=== PATIENT | female | born 1990 | race Caucasian/White ===

== ENCOUNTER 2017-03-07 08:40 | Emergency (ER) | payer BC ==
[~2017-03-07] VITALS: Ht 165.1 cm; Wt 52.2 kg
[~2017-03-07 08:40] MED LIST: ANAPROX DS550 MG PO; AUGMENTIN 500500 MG PO; DULCOLAX10 MG RC; IBU-6600 MG PO; LEVOFLOXACIN500 MG PO; MOTRIN 800 MG E4 TAB PO; PRENATAL1 TA1 PO; TRAMADOL HCL50 MG PO; VICODIN 5/500 505 MG PO; ZANTAC150 MG PO
[2017-03-07] MEDS ORDERED: ADDERALL XR15 MG PO (08:46)
[2017-03-07 09:20] LABS: BASO # 0.1 10*3/uL (0.0-0.1); BASO % 0.4 % (0.0-1.0); EOS # 0.1 10*3/uL (0.0-0.4); EOS % 0.6 % (1.0-4.0); HEMATOCRIT 38.4 % (37.0-47.0); HEMOGLOBIN 13.4 g/dl (12.0-16.0); IG # 0.1 10*3/uL (0.0-0.1); LYMPH # 2.4 10*3/uL (1.3-4.4); LYMPH % 19.4 % (27.0-41.0); MEAN CELL VOLUME 89.3 fl (81.0-99.0); MEAN CORPUSCULAR HGB 31.2 pg (27.0-31.0); MEAN CORPUSCULAR HGB CONC 34.9 g/dl (33.0-37.0); MEAN PLATELET VOLUME 9.8 fl (9.6-12.3); MONO # 0.6 10*3/uL (0.1-1.0); NEUT # 9.1 10*3/uL (2.3-7.9); NEUT % 73.9 % (47.0-73.0); PLATELET COUNT AUTOMATED 355 10*3/uL (130-400); RED CELL DISTRI WIDTH 12.3 % (0-14.5); WHITE BLOOD COUNT 12.3 10*3/uL (4.8-10.8)
[2017-03-07 09:36] LABS: ALBUMIN 3.9 gm/dl (3.1-4.5); ALKALINE PHOSPHATASE 61 U/L (45-117); BILIRUBIN, TOTAL 0.7 mg/dl (0.2-1.0); BUN 15 mg/dl (7-24); CARBON DIOXIDE 16 mmol/L (21-32); CHLORIDE 106 mmol/L (98-107); EST GLOM FILT AFRICAN AMERICAN 57 ml/min; GLUCOSE 155 mg/dL (65-99); POTASSIUM 3.1 mmol/L (3.5-5.1); SGOT/AST 14 IU/L (3-35); SGPT/ALT 21 U/L (12-78); SODIUM 136 mmol/L (136-145); TOTAL PROTEIN 7.7 gm/dL (6.4-8.2)
[2017-03-07 09:38] LABS: C-REACTIVE PROTEIN < 0.29 MG/DL (0-0.3)
[2017-03-07 11:38] VITALS: BP 122/79
[2017-03-07 11:42] LABS: BILIRUBIN 1+ (NEGATIVE); BLOOD 3+ (NEGATIVE); CLARITY CLOUDY (CLEAR); COLOR YELLOW (YELLOW); GLUCOSE NEGATIVE (NEGATIVE); KETONE 3+ (NEGATIVE); LEUKO ESTERASE NEGATIVE (NEGATIVE); NITRITE NEGATIVE (NEGATIVE); PROTEIN 2+ (NEGATIVE); SPECIFIC GRAVITY 1.025 (1.005-1.030)
[2017-03-07 11:55] LABS: BACTERIA TRACE; MUCOUS 1+; RBC 31-40 rbc/hpf (0-2)
[2017-03-07 11:56] LABS: URINE REFLEX COMMENT YES (NO)
[2017-03-07] MEDS ORDERED: HYDROCODONE BIT1 T11 PO (13:53)
[2017-03-07] MEDS ORDERED: Motrin,Rufen800 MG PO (13:53)
[2017-03-07] MEDS ORDERED: BACTRIM DS 8001 TA1 PO (13:53)
[2017-03-07] MEDS ORDERED: ZOFRAN ODT4 MG SL (13:53)
[2017-03-07] MEDS ORDERED: K-TAB20 MEQ PO (14:04)
== END 2017-03-07 14:00 | disposition home or self-care (01) ==
LOC: ED 08:40
PROVIDERS: Physician Assistant
DX: N13.2 Hydronephrosis with renal and ureteral calculous obstruction (principal); N39.0 Urinary tract infection, site not specified; R31.9 Hematuria, unspecified; E87.6 Hypokalemia; Z88.0 Allergy status to penicillin; Z79.899 Other long term (current) drug therapy

== ENCOUNTER → 2020-10-29 | Outpatient (CLI) | payer BC ==
[~2020-10-29] MED LIST changes: +ADDERALL XR15 MG PO; +BACTRIM DS 8001 TA1 PO; +HYDROCODONE BIT1 T11 PO; +K-TAB20 MEQ PO; +Motrin,Rufen800 MG PO; +PERCOCET 5-3251 EACH PO; +ZOFRAN ODT4 MG SL
== END | disposition home or self-care (01) ==
LOC: COVID19 02:22 → LAB 02:22
PROVIDERS: ATTEND Obstetrics & Gynecology
DX: Z11.52 Encounter for screening for COVID-19 (principal)

== ENCOUNTER → 2020-11-02 | Day surgery (SDC) | payer BC ==
[~2020-11-02] VITALS: Ht 162.5 cm; Wt 56.7 kg
[2020-11-02] VITALS (9 sets, daily range): BP systolic 104–129; BP diastolic 70–81
== END ==
LOC: SDC 10-29 13:15
PROVIDERS: ATTEND Obstetrics & Gynecology
DX: Z30.2 Encounter for sterilization (principal); N80.9 Endometriosis, unspecified

== ENCOUNTER 2023-10-27 19:04 | Emergency (ER) | payer BC ==
[~2023-10-27] VITALS: Ht 162.5 cm; Wt 68.0 kg
[2023-10-27 19:20] VITALS: BP 122/107
== END 2023-10-27 22:19 | disposition home or self-care (01) ==
LOC: ED 19:04
DX: S66.911A Strain of unspecified muscle, fascia and tendon at wrist and hand level, right hand, initial encounter (principal); Z88.0 Allergy status to penicillin; Z88.1 Allergy status to other antibiotic agents; W01.0XXA Fall on same level from slipping, tripping and stumbling without subsequent striking against object, initial encounter; Y93.89 Activity, other specified; Y92.89 Other specified places as the place of occurrence of the external cause; Y99.8 Other external cause status